=== PATIENT | female | born 1980 | race Caucasian/White ===

== ENCOUNTER 2018-11-13 03:57 | Emergency (ER) | payer SELFPAY ==
[~2018-11-13] VITALS: Ht 170.2 cm; Wt 100.0 kg
[2018-11-13 03:59] VITALS: BP 149/78
== END 2018-11-13 05:19 | disposition left against medical advice (07) ==
LOC: ER 04:30
DX: Z53.21 Procedure and treatment not carried out due to patient leaving prior to being seen by health care provider (principal)